=== PATIENT | female | born 1965 | race Hispanic/Latino ===

== ENCOUNTER 2022-08-02 18:54 | Inpatient (IN) | payer MEDICAID, SELFPAY ==
--- NOTE | ~2022-08-02 | XR_ITS ---
EXAMINATION: XR chest 2V Exam Date/Time: 08/02/2022 20:05 HEALTH PROMOTION COORDINATOR HISTORY: chest pain X 1 WK, LT SIDED LOWER CHEST PAIN, HX [place] Comparison: None available. RESULT: Lines, tubes, and devices: None. Lungs and pleura: Mild bilateral mid and lower lung reticular nodular opacities, most evident in the right middle lobe. Streaky bibasilar opacities may reflect scar/atelectasis Cardiomediastinal silhouette: Stable. Other: No acute osseous or upper abdominal finding. IMPRESSION: Pulmonary opacities may represent bronchiolitis, as can be seen with atypical infection, asthma, aspi ration, and small airways disease. Reviewed, dictated and finalized at location K. TH PROMOTION COORDINATOR IMPRESSION: Pulmonary opacities may represent bronchiolitis, as can be seen with atypical i nfection, asthma, aspiration, and small airways disease.
--- NOTE | ~2022-08-02 | US_ITS ---
Limited Abdominal Sonogram: Real-time sonographic imaging of the right upper quadrant was performed. Clinical History: Right upper quadrant pain Findings: The liver appears normal with no evidence of mass lesion or bile duct dilatation. Main por chitra vein demonstrates normal direction of flow. The gallbladder is well distended, without mobile gal lstone. 3 mm gallbladder wall polyp noted. The common bile duct measures 6 mm. The visualized pancre as, aorta, and IVC are unremarkable. Impression: 3 mm gallbladder wall polyp, otherwise unremarkable exam. Reviewed, dictated and finalized at location M. AL RETARDATION AIDE Impression: 3 mm gallbladder wall polyp, otherwise unremarkable exam.
--- NOTE | ~2022-08-02 | CT_ITS ---
CT Abdomen and Pelvis with contrast. History: Abdominal pain. Spiral CT of the abdomen and pelvis was performed after the administration of intravenous contrast. 1 00 cc of Omnipaque 350 was administered intravenously without complication. Dose reduction technique was used on this scan by utilizing automated exposure control and iterative reconstruction technique. The dose-length product (DLP) was 217.50 mGy-cm. Findings: Scans through the lung bases demonstrate mild bibasilar scarring or atelectasis. Probable m inimal bronchiectasis in the right middle lobe.. The liver, spleen, pancreas, adrenals and left kidney are within normal limits. Small calcified galls tones noted. There is patchy decreased enhancement throughout the right renal parenchyma, consistent with pyelonephritis. No hydronephrosis. No evidence of aortic aneurysm. No lymphadenopathy is seen. There is no evidence of bowel obstruction. There is no evidence to suggest acute appendicitis or dive rticulitis. Images through the pelvis were performed. Urinary bladder unremarkable. No adnexal mass seen. No asci ayesha is seen. Impression: Right pyelonephritis. No abscess or hydronephrosis. Reviewed, dictated and finalized at location . HIATRIC TECHNICIAN Impression: Right pyelonephritis. No abscess or hydronephrosis.
[2022-08-02 18:56] VITALS: BP 121/70; PULSE 100; RESP 20; TEMP 37.2; O2SAT 99
--- NOTE | 2022-08-02 19:03 | ECG_ITS ---
Measurements Intervals [place] Rate: 96 P: [place]: 0 QRS: 66 QRSD: 81 T: 69 QT: 305 QTc: 386 Interpretive Statements SINUS RHYTHM RSR' IN V1 OR V2, PROBABLY NORMAL VARIANT NORMAL ECG NO PREVIOUS ECG AVAILABLE FOR COMPARISON Electronically Signed On 08-02-2022 20:17:29 STRUCTURAL FITTER by Maikol Foote D.O.
[2022-08-02 19:19] LABS: Hematocrit 34.1 % (37.0-47.0); Hemoglobin 11.4 g/dL (12.0-15.0); Mean Corpuscular HGB Conc 33.4 g/dl (32-36); Mean Corpuscular Hemoglobin 31.8 pg (26-34); Mean Corpuscular Volume 95.3 fl (80-100); Mean Platelet Volume 10.4 fl (7.4-10.4); Platelet Count Result 384 k/mm3 (150-375); Red Blood Count 3.58 M/mm3 (4.2-5.4); Red Cell Distribution Width 13.1 % (11.5-14.5); White Blood Count 22.9 K/mm3 (4.5-10.0)
[2022-08-02 19:26] LABS: Alanine Aminotransferase 110 U/L (6-35); Alkaline Phosphatase 228 U/L (38-126); Anion Gap 7 mmol/L (8-16); Aspartate Amino Transferase 116 U/L (14-36); Bilirubin,Total 0.8 mg/dL (0.2-1.3); Blood Urea Nitrogen 11 mg/dL (7-17); Calcium 8.4 mg/dL (8.4-10.2); Carbon Dioxide 28 mmol/L (22-30); Chloride 104 mmol/L (98-107); Estimated Glomerular Filt Rate > 60; Glucose 143 mg/dL (65-110); Lipase 19 U/L (23-300); Potassium 3.6 mmol/L (3.4-5.0); Sodium 139 mmol/L (137-145)
[2022-08-02 19:28] LABS: INR 1.2; Partial Thromboplastin Time 36.4 SECONDS (22.3-36.8); Prothrombin Time 14.4 Seconds (11.1-14.7)
[2022-08-02 19:38] LABS: Troponin I < 0.012 ng/mL (0.000-0.034)
[2022-08-02 19:57] LABS: Band Neutrophils Percent 8 % (0-6); Eosinophils Absolute Manual 0.45 K/mm3 (0.02-0.5); Eosinophils Percent Manual 2 % (0-4); Lymphocytes Absolute Manual 1.83 K/mm3 (1.1-4.5); Monocytes Absolute Manual 0.45 K/mm3 (0.1-0.90); Monocytes Percent Manual 2 % (3-9); Neutrophils Absolute Manual 20.15 K/mm3 (1.7-7.2); Neutrophils Percent Manual 80 % (46-73); Schistocytes None Seen (NORMAL); Total Cells Counted 100
[2022-08-02 23:35] VITALS: BP 108/81; PULSE 119; RESP 22; O2SAT 100
[2022-08-02 23:41] VITALS: PULSE 112; RESP 34; O2SAT 100
[2022-08-02 23:42] VITALS: O2SAT 100
[2022-08-02 23:45] VITALS: PULSE 122; RESP 19; O2SAT 100
[2022-08-03] VITALS (27 sets, daily range): BP systolic 95–124; BP diastolic 54–80; PULSE 96–123; RESP 16–32; TEMP 36.4–37.7; O2SAT 90–99; BMI 24.7
[2022-08-03] MEDS: LACTATED RINGERS 1,000 ML 999 ML IV CONT ×2 (00:11→03:33)
[2022-08-03 00:37] LABS: Add Urine Microscopic? YES; Appearance Urine Slightly Cloudy (Clear); Bilirubin Urine Negative (Negative); Blood Urine 2+ (Negative); Color Urine Yellow (Yellow); Glucose Urine UA Negative (Negative); Ketones Urine Negative (Negative); Leukocyte Esterase Ur 2+ LEU/UL (Negative); Nitrate Urine Positive (Negative); Protein Urine Trace mg/dL (Negative); Specific Grav Ur <= 1.005 (1.001-1.035); Urobilinogen Urine 0.2 mg/dL (<2.0)
[2022-08-03 00:44] LABS: Bacteria Urine Trace /hpf; Mucus Urine Rare /lpf; Squamous Epithelial Cell Urine Occasional /hpf (Few); WBC Urine 31-50 /hpf
--- NOTE | 2022-08-03 03:10 | ED.ABDPAIN ---
HPI - Abdominal Pain General Chief Complaint: Chest Pain Stated Complaint: fever, back pain Time Seen by Provider: 08/02/22 23:36 History of Present Illness HPI narrative: 57-year-old female who states that for the last month or so she has been having a lot of pain in her epigastric abdomen/right upper quadrant, particularly with eating, but that over the past week she has also been having fevers and chills, and dysuria, and now flank pain. Also endorsing a headache. No abdominal surgery history. Related Data Allergies Allergy/AdvReac Type Severity Reaction Status Date / Time No Known Allergies Allergy Verified 08/03/22 01:38 Review of Systems Review of Systems: CONST: Fevers HEENT: No sore throat C/V: Right-sided chest pain RESP: No cough GI: Reports right upper quadrant/epigastric abdominal pain, nausea : Dysuria. M/S: No joint pain. SKIN: No rash. NEURO: Headache without focal numbness or weakness PSYCH: [No depression] Exam Narrative: EXAMINATION OF ORGAN SYSTEMS/BODY AREAS: Constitutional: Vital signs per nursing GENERAL: Appears uncomfortable in bed HEAD: Normal with no signs of head trauma. EYES: EOMI, conjunctiva normal ENT: Hearing grossly intact LUNGS: Nonlabored breathing. HEART: Tachycardic ABD: [Soft], right upper quadrant tenderness BACK: R CVA tenderness EXT: Normal range of motion SKIN: [No rashes or lesions.] NEURO: [Alert and oriented x 3. No gross focal sensory or strength deficits.] PSYCH: Normal affect Course Vital Signs Vital signs: Vital Signs Temperature 98.9 F 08/02/22 18:56 Pulse Rate 100 08/02/22 18:56 Respiratory Rate 20 08/02/22 18:56 Blood Pressure 121/70 08/02/22 18:56 Pulse Oximetry 99 08/02/22 18:56 Temperature 98.9 F 08/02/22 18:56 Pulse Rate 110 H 08/03/22 03:15 Respiratory Rate 28 H 08/03/22 03:15 Blood Pressure 110/69 08/03/22 03:01 Pulse Oximetry 97 08/03/22 03:15 Oxygen Delivery Room Air 08/02/22 23:42 MDM - Abdominal Pain MDM Narrative Medical decision making narrative: Electronic medical record was reviewed. Patient presented to the ED with complaint of right flank pain and abdominal pain. Vitals notable for tachycardia. Physical exam revealed soft abdomen with tenderness in the right upper quadrant and CVA tenderness. Based on the patient's history and physical exam, my differential includes but is not limited to cholecystitis, pyelonephritis, appendicitis, pancreatitis; ACS and pneumonia also considered. [IV access was established by nursing staff. Patient was given IV fluids]. CBC, BMP, lipase, LFTs, bilirubin and alk phos were obtained. Labs were pertinent for leukocytosis 23, elevated LFTs and alk phos. BLood cultures obtained, IV fluids continued, zosyn started for sepsis. UA consistent with UTI. [Decision was made to obtain a CT-abdomen to evaluate for acute abdominal process including retained stone or cholecystitis. CT does show distended gallbladder, perinephric stranding on the right.] I did discuss this case with the surgeon given her LFTs, he would like to see the patient in the morning and evaluate for possible cholecystectomy. Case discussed with the hospitalist for admission. Findings and plan discussed with the patient and her daughter at bedside are agreeable to this. Lab Data 08/02/22 19:09 08/02/22 19:09 Labs: Lab Results 08/02/22 08/02/22 08/02/22 Range/Units 19:09 19:09 19:09 WBC 22.9 H (4.5-10.0) K/mm3 RBC 3.58 L (4.2-5.4) M/mm3 Hgb 11.4 L (12.0-15.0) g/dL Hct 34.1 L (37.0-47.0) % MCV 95.3 (80-100) fl MCH 31.8 (26-34) pg MCHC 33.4 (32-36) g/dl RDW 13.1 (11.5-14.5) % Plt Count 384 H (150-375) k/mm3 MPV 10.4 (7.4-10.4) fl Immature Gran % (Auto) Not Reportable Neut % (Auto) Not Reportable Lymph % (Auto) Not Reportable [place] % (Auto) Not Reportable Eos % (Auto) Not Reportable Baso % (Aut
[2022-08-03] MEDS: METOCLOPRAMIDE HCL INJ 10 MG/2 ML VIAL IV PUSH (03:33)
[2022-08-03 04:13] LABS: Influenza A QL RT-PCR Negative (Negative); Influenza B QL RT-PCR Negative (Negative); RSV RNA, RT-PCR Negative (Negative); SARS-CoV-2 RNA PCR Negative
[2022-08-03] MEDS: LACTATED RINGERS 1,000 ML 125 ML IV CONT (04:39)
--- NOTE | 2022-08-03 07:20 | PC.NURSE ---
pt to ultrasound via stretcher.
[2022-08-03 07:25] LABS: Basophils Absolute Auto 0.1 K/mm3 (0.0-0.1); Basophils Percent Auto 0.3 % (0.2-1.2); Eosinophils Absolute Auto 0.5 K/mm3 (0-0.3); Eosinophils Percent Auto 2.4 % (0-4.4); Hematocrit 28.5 % (37.0-47.0); Hemoglobin 9.6 g/dL (12.0-15.0); Immature Granulocyte Absolute 0.18 K/mm3 (0.00-0.031); Immature Granulocyte Percent A 0.9 % (0-0.5); Lymphocytes Absolute Auto 1.78 K/mm3 (0.9-3.2); Lymphocytes Percent Auto 9.1 % (18.3-44.2); Mean Corpuscular HGB Conc 33.7 g/dl (32-36); Mean Corpuscular Hemoglobin 31.2 pg (26-34); Mean Corpuscular Volume 92.5 fl (80-100); Mean Platelet Volume 10.3 fl (7.4-10.4); Monocytes Absolute Auto 1.3 K/mm3 (0.1-0.6); Monocytes Percent Auto 6.8 % (2.6-8.5); Neutrophils Absolute Auto 15.7 K/mm3 (1.3-6.7); Neutrophils Percent Auto 80.5 % (45.5-73.1); Platelet Count Result 360 k/mm3 (150-375); Red Blood Count 3.08 M/mm3 (4.2-5.4); Red Cell Distribution Width 13.4 % (11.5-14.5); White Blood Count 19.5 K/mm3 (4.5-10.0)
[2022-08-03 07:33] LABS: Alanine Aminotransferase 93 U/L (6-35); Albumin Level 3.1 g/dL (3.5-5.1); Alkaline Phosphatase 206 U/L (38-126); Anion Gap 4 mmol/L (8-16); Aspartate Amino Transferase 74 U/L (14-36); Bilirubin,Total 0.7 mg/dL (0.2-1.3); Blood Urea Nitrogen 7 mg/dL (7-17); Calcium 7.7 mg/dL (8.4-10.2); Carbon Dioxide 28 mmol/L (22-30); Chloride 108 mmol/L (98-107); Estimated Glomerular Filt Rate > 60; Glucose 112 mg/dL (65-110); Lipase 11 U/L (23-300); Potassium 3.4 mmol/L (3.4-5.0); Sodium 140 mmol/L (137-145)
--- NOTE | 2022-08-03 10:25 | PM.IMHP ---
H&P: HPI History of Present Illness Date/Time: 08/03/22 10:25 Chief Complaint: abdominal pain Narrative: Pt is a 57 yo female w/ no prior medical history who presented to the Emergency room for abdominal pain and R flank pain. [employer] transit operations supervisor was used for interview as the patient is Slovenian speaking. History is still fairly limited due to communication barrier despite using transit operations supervisor. Per ER note, patient presented w/ epigastric and RUQ pain intermittent x 1 month, worse x 1 week. Pt tells me she has had intermittent abdominal pain since having her gallbladder removed in 2006. She came to the ER because she developed fever, chills, PACK, and R flank pain x 2 days. She denies urinary symptoms. Upon review of imaging, patient does in fact still have a gallbladder, despite her being certain it was removed in 2006. Pt is being admitted for sepsis due to acute pyelonephritis as noted on CT. Pertinent labs include leukocytosis of 22.9 and elevated LFTs. Pt admitted as inpatient w/ greater than 2 midnights expected for further evaluation and treatment. Review of Systems Review of Systems: General: + fever, +chills Eyes: Denies vision changes ENT: Denies nasal congestion or sore throat Respiratory: Denies cough or shortness of breath Cardiovascular: Denies chest pain or lower extremity edema Gastrointestinal: + abdominal pain, + nausea Genitourinary: Denies dysuria Musculoskeletal: + R flank pain Neurological: + headache, no motor weakness Integumentary: Denies rash PMF Social History Social History (Updated 08/03/22 @ 10:39 by Isadora Rosales PA-C) Smoking status: Never smoker Second hand tobacco smoke exposure: No Alcohol intake: never Substance use type: does not use Lack of Transportation: No Lack of Food: Sometimes True Current Housing: I Have Housing Concerned About Future Housing: No Difficulty Paying Gas/Electric Bills: YES Difficulty Paying for Meds: YES Currently Unemployed: YES Education: Grade School Difficulty w/ Childcare or Family Care: No Gender identity (if verbalized by the patient): Female Spiritual care concerns: No (uatsdin) Meds Home Medications and Allergies Allergies Allergy/AdvReac Type Severity Reaction Status Date / Time No Known Allergies Allergy Verified 08/03/22 08:40 Vital Signs Vital Signs - 24 hr 08/02/22 18:56 08/02/22 23:35 08/02/22 23:42 Temperature 98.9 F Pulse Rate 100 119 H Respiratory Rate 20 22 H Blood Pressure 121/70 108/81 Pulse Oximetry 99 100 100 Oxygen Delivery Room Air 08/03/22 01:44 08/02/22 23:41 08/02/22 23:45 Temperature Pulse Rate 110 H 112 H 122 H Respiratory Rate 26 H 34 H 19 Blood Pressure 95/54 L Pulse Oximetry 96 100 100 Oxygen Delivery 08/03/22 00:11 08/03/22 00:15 08/03/22 00:30 Temperature Pulse Rate 111 H 112 H 113 H Respiratory Rate 30 H 31 H 27 H Blood Pressure Pulse Oximetry 97 99 Oxygen Delivery 08/03/22 00:45 08/03/22 01:00 08/03/22 01:58 Temperature Pulse Rate 114 H 111 H 113 H Respiratory Rate 31 H 32 H 28 H Blood Pressure Pulse Oximetry 98 94 96 Oxygen Delivery 08/03/22 02:00 08/03/22 02:25 08/03/22 02:30 Temperature Pulse Rate 109 H 115 H 112 H Respiratory Rate 27 H 25 H 28 H Blood Pressure Pulse Oximetry 96 97 95 Oxygen Delivery 08/03/22 02:45 08/03/22 03:00 08/03/22 03:01 Temperature Pulse Rate 110 H 111 H 111 H Respiratory Rate 25 H 28 H 26 H Blood Pressure 110/69 Pulse Oximetry 94 96 95 Oxygen Delivery 08/03/22 03:15 08/03/22 03:31 08/03/22 03:45 Temperature Pulse Rate 110 H 114 H 123 H Respiratory Rate 28 H 27 H 25 H Blood Pressure Pulse Oximetry 97 97 Oxygen Delivery 08/03/22 04:00 08/03/22 04:01 08/03/22 04:55 Temperature Pulse Rate 118 H 119 H 113 H Respiratory Rate 28 H 29 H 25 H Blood Pressure 121/78 Pulse Oximetry 96 96 95 Oxygen Delivery
--- NOTE | 2022-08-03 12:22 | PM.CNGS ---
Assessment and Plan Assessment and plan (1) Abnormal CT of the abdomen: Code(s): R93.5 - Abnormal findings on diagnostic imaging of other abdominal regions, including retroperitoneum Status: Acute Assessment and Plan: I have reviewed the CT and ultrasound and discussed the findings with the patient. Her CT showed possible small cholelithiasis in an otherwise normal appearing gallbladder as well as signs of right pyelonephritis. Her ultrasound does not confirm cholelithiasis but does state there is a 3 mm gallbladder wall polyp. She has no other concerning findings for cholecystitis. Her presentation does not appear to be consistent with acute cholecystitis. This is more likely related to her pyelonephritis. Her liver enzymes are elevated but that could be related to the infection and sepsis as well. Will allow patient to have clear liquid diet. Continue medical treatment per hospitalist. I would not recommend surgery at this time given the ongoing kidney infection. Patient could always follow up as an outpatient if she notices recurrent pains after eating fried or fatty foods. (2) Elevated liver enzymes: Code(s): R74.8 - Abnormal levels of other serum enzymes Status: Acute (3) Pyelonephritis: Code(s): N12 - Tubulo-interstitial nephritis, not specified as acute or chronic Status: Acute (4) Sepsis: Code(s): A41.9 - Sepsis, unspecified organism Status: Acute History of Present Illness Consult details Consult date: 08/03/22 Reason for consult: other (Possible cholecystitis) Requesting physician: Ritu Aguirre MD Narrative: This is a 57-year-old woman who I am asked to see for possible cholecystitis. She presented to the emergency department last night with epigastric and right upper quadrant pain, right flank pain, and fevers. Her fevers have been over the past several days. She is primarily Sinhala speaking therefore extension course coordinator was used to obtain history. She does not identify any particular foods that are causing any pain. She denies any change in her bowel habits. Even with using the extension course coordinator system, her history is somewhat difficult to obtain. She is mostly complaining of feeling hot all over. She is also thirsty because she has been kept NPO. She has had surgery before and she points to 3 areas on her lower abdomen for her prior surgery, but does not elaborate much on what was done. Review of Systems Review of Systems: All systems reviewed & are unremarkable except as noted in HPI and below Constitutional: Constitutional: Reports as per HPI, Reports chills and Reports fever(s) Eyes: Eyes: Denies change in vision ENT: Denies hearing loss, Denies neck pain and Denies sore throat Cardiovascular: Cardiovascular: Denies chest pain and Denies dyspnea Respiratory: Respiratory: Denies cough, Denies dyspnea and Denies wheezing Gastrointestinal: Gastrointestinal: Reports as per HPI Genitourinary: Genitourinary: Denies hematuria and Denies dysuria Musculoskeletal: Musculoskeletal: Denies arthralgias, Denies joint swelling and Denies neck pain Allergic/Immunologic: Allergic/Immunologic: Denies wheezing PMFSH Past Medical History Medical History No pertinent past medical history Surgical History Surgical History History of laparoscopy Family History Family History Other Family history unknown Social History Social History Smoking status: Never smoker Second hand tobacco smoke exposure: No Alcohol intake: never Substance use type: does not use Lack of Transportation: No Lack of Food: Sometimes True Current Housing: I Have Housing Concerned About Future Housing: No Difficulty Paying Gas/Electric Bills: YES Difficul
--- NOTE | 2022-08-03 16:30 | PC.NURSE ---
pts family who is translating states pt is in pain. erin st notified. pain and nausea med orders received verbally. morphine given per order.
[2022-08-03] MEDS: MORPHINE SULFATE (*CRX) 2 MG/ML INJ IV PUSH (16:47)
--- NOTE | 2022-08-03 17:11 | ADMGEN ---
This patient, Margy Gallardo, was admitted to [facility] Surg Room 306-02. Patient/family oriented to hospital policies and general routines including ID bracelet, bed and alarms, visiting hours, pain management, procedures, bathroom and other care routines, personal items, smoking policy, room service/diet, and visiting hours. Information on how to activate the Rapid Response Team has been discussed. Patient/Family are encouraged to report perceived risks to care and to ask questions if they do not understand what they are told or what they should do.
[2022-08-03] MEDS: LACTATED RINGERS 1,000 ML 75 ML IV CONT (18:31)
[2022-08-04 06:26] LABS: Basophils Absolute Auto 0.1 K/mm3 (0.0-0.1); Basophils Percent Auto 0.4 % (0.2-1.2); Eosinophils Absolute Auto 0.3 K/mm3 (0-0.3); Eosinophils Percent Auto 1.6 % (0-4.4); Hemoglobin 9.6 g/dL (12.0-15.0); Immature Granulocyte Absolute 0.12 K/mm3 (0.00-0.031); Immature Granulocyte Percent A 0.7 % (0-0.5); Lymphocytes Absolute Auto 2.28 K/mm3 (0.9-3.2); Lymphocytes Percent Auto 13.7 % (18.3-44.2); Mean Corpuscular HGB Conc 33.1 g/dl (32-36); Mean Corpuscular Hemoglobin 31.7 pg (26-34); Mean Corpuscular Volume 95.7 fl (80-100); Mean Platelet Volume 10.3 fl (7.4-10.4); Monocytes Percent Auto 6.1 % (2.6-8.5); Neutrophils Absolute Auto 12.9 K/mm3 (1.3-6.7); Neutrophils Percent Auto 77.5 % (45.5-73.1); Platelet Count Result 362 k/mm3 (150-375); Red Blood Count 3.03 M/mm3 (4.2-5.4); Red Cell Distribution Width 13.7 % (11.5-14.5); White Blood Count 16.7 K/mm3 (4.5-10.0)
[2022-08-04 06:45] VITALS: BP 117/62; PULSE 85; RESP 16; TEMP 36.8; O2SAT 100
[2022-08-04] MEDS: LACTATED RINGERS 1,000 ML 75 ML IV CONT ×2 (06:49→21:55)
[2022-08-04 06:54] LABS: Alanine Aminotransferase 62 U/L (6-35); Albumin Level 2.9 g/dL (3.5-5.1); Alkaline Phosphatase 200 U/L (38-126); Anion Gap 9 mmol/L (8-16); Aspartate Amino Transferase 49 U/L (14-36); Bilirubin,Total 0.8 mg/dL (0.2-1.3); Blood Urea Nitrogen 7 mg/dL (7-17); Calcium 7.6 mg/dL (8.4-10.2); Carbon Dioxide 25 mmol/L (22-30); Chloride 100 mmol/L (98-107); Estimated CRCL calculation 56 ml/min; Estimated Glomerular Filt Rate > 60; Glucose 103 mg/dL (65-110); Potassium 3.3 mmol/L (3.4-5.0); Sodium 134 mmol/L (137-145)
--- NOTE | 2022-08-04 08:32 | PM.IMPN ---
Progress Note: A&P Assessment and Plan (1) Sepsis: Code(s): A41.9 - Sepsis, unspecified organism Status: Acute Assessment and Plan: -secondary to acute pyelonephritis as noted on CT -pt admitted w/ WBC of 22.9, HR currently 115 bpm, respirations 25 meeting SIRS criteria -receiving IVF and Zosyn due to concern of possible cholecystitis which was ruled out as noted below -continue Zosyn for now, urine and blood cultures pending, will follow culture and adjust abx therapy as indicated -continue IVF, currently 75 ml/hr urine culture is pending.blood culture no growth to date (2) Pyelonephritis: Code(s): N12 - Tubulo-interstitial nephritis, not specified as acute or chronic Status: Acute Assessment and Plan: -as above (3) Cholelithiasis: Code(s): K80.20 - Calculus of gallbladder without cholecystitis without obstruction Status: Acute Assessment and Plan: -ER note states CT was read initially as significant for distended gallbladder, perinephric stranding on the right. Due to elevated LFTs and sepsis, general surgery was consulted for possible acute cholecystitis. Abdominal US was completed this morning which shows a gallbladder polyp, but was otherwise unremarkable. This is all quite curious because patient was certain her gallbladder was removed in 2006. abdominal us unremakble except or 3 mm gb wall polyp gen srg consulted. appreciate their recs. Subjective Date/time seen: 08/04/22 08:32 Interval history: seen with linoleum printer. feels a bit better. she reports flank pain is better. no nausea, vomiting. Review of Systems Review of Systems: All systems reviewed & are unremarkable except as noted in HPI and below Exam Narrative: General: No acute distress, mildly ill appearing, lethargic Eyes: PERRL HEENT: NCAT, Respiratory: No respiratory distress, Lungs CTA bilaterally, no wheezing Cardiovascular: tachycardic, regular rhythm, no murmur Abdominal: Soft, moderate ttp right cva Musculoskeletal: Moves all 4 extremities, no edema Neurological: A/Ox3, speech clear, no facial asymmetry Skin: Warm, dry, no rashes Psychiatric: Normal affect, normal mood Objective Data Vital Signs Vital Signs: Vital Signs - 24 hr 08/03/22 14:20 08/03/22 16:55 08/03/22 17:10 Temperature 97.6 F Pulse Rate 101 H 96 96 Respiratory Rate 16 16 16 Blood Pressure 113/68 111/60 111/60 Pulse Oximetry 98 98 Oxygen Delivery 08/03/22 17:24 08/03/22 21:38 08/03/22 20:45 Temperature 99.9 F H 97.7 F Pulse Rate 99 108 H Respiratory Rate 16 16 Blood Pressure 124/69 111/70 Pulse Oximetry 96 97 Oxygen Delivery Room Air 08/04/22 06:45 Temperature 98.3 F Pulse Rate 85 Respiratory Rate 16 Blood Pressure 117/62 Pulse Oximetry 100 Oxygen Delivery Intake/Output Intake/Output: Intake & Output 08/01/22 08/02/22 08/03/22 08/04/22 23:59 23:59 23:59 23:59 Intake Total 3350 1050 Balance 3350 1050 Meds/Results Medications: Active Medications Generic Name Dose Route Start Last Admin Trade Name Freq PRN Reason Stop Dose Admin Acetaminophen 650 mg 08/03/22 18:48 Acetaminophen 325 Mg Tablet PO Q4H PRN fever Hydrocodone Bitart/Acetaminophen 1 tab 08/03/22 16:32 Hydrocodone/Acetaminophen (*Crx) 5-325 Mg Tablet PO Q4H PRN Pain Rated 4-6 Lactated Ringer's 1,000 mls @ 75 mls/hr 08/03/22 03:30 08/04/22 06:49 Lr - Lactated Ringers Iv IV CONT 75 mls/hr .[id number] BIJAN Administration Piperacillin/Tazobactam/Dextrose 3.375 gm in 50 mls @ 100 mls/hr 08/03/22 07:30 08/04/22 07:13 Zosyn 3.375 Gm/D5w 50ml Pm IVPB Infused Q6HR BIJAN Infusion Morphine Sulfate 2 mg 08/03/22 16:31 08/03/22 16:47 Morphine Sulfate (*Crx) 2 Mg/Ml Inj IV PUSH 2 mg Q4H PRN Administration Pain Rated 7-10 Ondansetron HCl 4 mg 08/03/22 16:30 Ondansetron Inj 4 Mg/2 Ml Vial IV PUSH Q4H PRN N
[2022-08-04] MEDS: POTASSIUM CHLORIDE 20 MEQ TABLET 40 MEQ PO (10:50)
--- NOTE | 2022-08-04 12:40 | PM.PNGS ---
Progress Note: A&P Assessment and Plan (1) Abnormal CT of the abdomen: Code(s): R93.5 - Abnormal findings on diagnostic imaging of other abdominal regions, including retroperitoneum Status: Acute Assessment and Plan: Tolerating clears. Advance to low fat diet. No surgical indications at this time. (2) Pyelonephritis: Code(s): N12 - Tubulo-interstitial nephritis, not specified as acute or chronic Status: Acute (3) Sepsis: Code(s): A41.9 - Sepsis, unspecified organism Status: Acute Subjective Subjective Date/Time Seen: 08/04/22 12:40 Interval history: Mostly complaining of dysuria and some mild improving right flank pain. Tolerating clear liquids. Exam GI: GI Palp: Yes Soft to palpation, No Tenderness to palpation present (GI) and No Guarding due to palpation present (GI) Objective Data Vital Signs Vital Signs: Vital Signs - 24 hr 08/03/22 14:20 08/03/22 16:55 08/03/22 17:10 Temperature 36.4 C Pulse Rate 101 H 96 96 Respiratory Rate 16 16 16 Blood Pressure 113/68 111/60 111/60 Pulse Oximetry 98 98 Oxygen Delivery 08/03/22 17:24 08/03/22 21:38 08/03/22 20:45 Temperature 37.7 C H 36.5 C Pulse Rate 99 108 H Respiratory Rate 16 16 Blood Pressure 124/69 111/70 Pulse Oximetry 96 97 Oxygen Delivery Room Air 08/04/22 06:45 Temperature 36.8 C Pulse Rate 85 Respiratory Rate 16 Blood Pressure 117/62 Pulse Oximetry 100 Oxygen Delivery Intake/Output Intake/Output: Intake & Output 08/01/22 08/02/22 08/03/22 08/04/22 23:59 23:59 23:59 23:59 Intake Total 3350 1410 Balance 3350 1410 Meds/Results Medications: Active Medications Generic Name Dose Route Start Last Admin Trade Name Freq PRN Reason Stop Dose Admin Acetaminophen 650 mg 08/03/22 18:48 Acetaminophen 325 Mg Tablet PO Q4H PRN fever Hydrocodone Bitart/Acetaminophen 1 tab 08/03/22 16:32 Hydrocodone/Acetaminophen (*Crx) 5-325 Mg Tablet PO Q4H PRN Pain Rated 4-6 Lactated Ringer's 1,000 mls @ 75 mls/hr 08/03/22 03:30 08/04/22 06:49 Lr - Lactated Ringers Iv IV CONT 75 mls/hr .[id number] BIJAN Administration Piperacillin/Tazobactam/Dextrose 3.375 gm in 50 mls @ 100 mls/hr 08/03/22 07:30 08/04/22 07:13 Zosyn 3.375 Gm/D5w 50ml Pm IVPB Infused Q6HR BIJAN Infusion Morphine Sulfate 2 mg 08/03/22 16:31 08/03/22 16:47 Morphine Sulfate (*Crx) 2 Mg/Ml Inj IV PUSH 2 mg Q4H PRN Administration Pain Rated 7-10 Ondansetron HCl 4 mg 08/03/22 16:30 Ondansetron Inj 4 Mg/2 Ml Vial IV PUSH Q4H PRN Nausea And Vomiting Radiology Results: ITS Impressions Chest X-Ray 08/02/22 20:33 IMPRESSION: Pulmonary opacities may represent bronchiolitis, as can be seen with atypical infection, asthma, aspiration, and small airways disease. Abdomen/Pelvis CT 08/03/22 06:34 Impression: Right pyelonephritis. No abscess or hydronephrosis. Abdomen Ultrasound 08/03/22 08:02 Impression: 3 mm gallbladder wall polyp, otherwise unremarkable exam. Labs Labs: Laboratory Results - last 24 hr 08/04/22 08/04/22 05:53 05:53 WBC 16.7 H RBC 3.03 L Hgb 9.6 L Hct 29.0 L MCV 95.7 MCH 31.7 MCHC 33.1 RDW 13.7 Plt Count 362 MPV 10.3 Immature Gran % (Auto) 0.7 H Neut % (Auto) 77.5 H Lymph % (Auto) 13.7 L [place] % (Auto) 6.1 Eos % (Auto) 1.6 Baso % (Auto) 0.4 Lymph # (Auto) 2.28 [place] # (Auto) 1.0 H Eos # (Auto) 0.3 Baso # (Auto) 0.1 Abs Immat Gran (auto) 0.12 H Absolute Neuts (auto) 12.9 H Absolute Nucleated RBC 0.0 Nucleated RBC % 0.0 Sodium 134 L Potassium 3.3 L Chloride 100 Carbon Dioxide 25 Anion Gap 9 BUN 7 Creatinine 0.70 Estim Creat Clear Calc 56 Estimated GFR > 60 Glucose 103 Calcium 7.6 L Total Bilirubin 0.8 AST 49 H ALT 62 H Alkaline Phosphatase 200 H Total Protein 6.0 L [place]
[2022-08-04 14:00] VITALS: BP 114/66; PULSE 86; RESP 28; TEMP 36.4; O2SAT 97; BMI 24.7
[2022-08-04 21:22] VITALS: BP 121/63; PULSE 94; RESP 14; TEMP 37.4; O2SAT 95
[2022-08-05 05:36] VITALS: BP 118/70; PULSE 88; RESP 14; TEMP 36.6; O2SAT 99
[2022-08-05 07:08] LABS: Basophils Absolute Auto 0.1 K/mm3 (0.0-0.1); Basophils Percent Auto 0.5 % (0.2-1.2); Eosinophils Absolute Auto 0.5 K/mm3 (0-0.3); Eosinophils Percent Auto 4.4 % (0-4.4); Hematocrit 30.7 % (37.0-47.0); Hemoglobin 10.2 g/dL (12.0-15.0); Immature Granulocyte Absolute 0.13 K/mm3 (0.00-0.031); Immature Granulocyte Percent A 1.2 % (0-0.5); Lymphocytes Absolute Auto 1.88 K/mm3 (0.9-3.2); Lymphocytes Percent Auto 17.3 % (18.3-44.2); Mean Corpuscular HGB Conc 33.2 g/dl (32-36); Mean Corpuscular Hemoglobin 30.8 pg (26-34); Mean Corpuscular Volume 92.7 fl (80-100); Mean Platelet Volume 10.4 fl (7.4-10.4); Monocytes Absolute Auto 0.9 K/mm3 (0.1-0.6); Monocytes Percent Auto 7.8 % (2.6-8.5); Neutrophils Absolute Auto 7.5 K/mm3 (1.3-6.7); Neutrophils Percent Auto 68.8 % (45.5-73.1); Platelet Count Result 420 k/mm3 (150-375); Red Blood Count 3.31 M/mm3 (4.2-5.4); Red Cell Distribution Width 13.6 % (11.5-14.5); White Blood Count 10.9 K/mm3 (4.5-10.0)
[2022-08-05 07:23] LABS: Alanine Aminotransferase 49 U/L (6-35); Albumin Level 3.4 g/dL (3.5-5.1); Alkaline Phosphatase 181 U/L (38-126); Anion Gap 5 mmol/L (8-16); Aspartate Amino Transferase 27 U/L (14-36); Bilirubin,Total 0.8 mg/dL (0.2-1.3); Blood Urea Nitrogen 6 mg/dL (7-17); Calcium 8.1 mg/dL (8.4-10.2); Carbon Dioxide 29 mmol/L (22-30); Chloride 100 mmol/L (98-107); Estimated CRCL calculation 49 ml/min; Estimated Glomerular Filt Rate > 60; Glucose 121 mg/dL (65-110); Magnesium 2.2 mg/dL (1.6-2.3); Potassium 3.7 mmol/L (3.4-5.0); Sodium 134 mmol/L (137-145)
[2022-08-05 10:42] LABS: Hepatitis B Surface Antigen Negative (Negative)
[2022-08-05 10:47] LABS: HAV RESULT Negative (Negative); Hepatitis B Core IgM Result Negative (Negative)
[2022-08-05 10:58] LABS: Hepatitis C Virus Antibody Negative (Negative)
[2022-08-05] MEDS: LACTATED RINGERS 1,000 ML 75 ML IV CONT (11:50)
[2022-08-05] MEDS: HYDROcodone/acetaminophen (*CRX) 5-325 MG TABLET 1 TAB PO (11:53)
[2022-08-05 14:00] VITALS: BP 115/72; PULSE 73; RESP 16; TEMP 36.1; O2SAT 100
--- NOTE | 2022-08-05 18:05 | PM.DS ---
DS: Admitting Diagnosis Discharge Date 08/05/22 Admitting Diagnosis Abdominal pain DS: Discharge Diagnosis Discharge Diagnosis (1) Sepsis: Code(s): A41.9 - Sepsis, unspecified organism Status: Acute (2) Pyelonephritis: Code(s): N12 - Tubulo-interstitial nephritis, not specified as acute or chronic Status: Acute (3) Cholelithiasis: Code(s): K80.20 - Calculus of gallbladder without cholecystitis without obstruction Status: Acute DS: Summary Hospital Course Reason for hospitalization: 57yo female w/ no prior medical history who presented to the Emergency room for abdominal pain and R flank pain. Please see H&P for details Hospital Course: WBC was 19K. LFTs mildly elevated. Influenza, COVID and RSV negative. Hepatitis panel was negative. UA consistent with UTI. BCx NGTD. Renal function remained normal. CXR showing evidence of bronchiolitis. CT abdomen and pelvis showing mild bibasilar scarring or atelectasis and probable minimal bronchiectsis RML. Also noted was right pyelonephritis. Abd US showing a3mm gallbladder wall polyp. General surgery consulted but felt nothing needed to be done. It was felt that the elevated LFTs related to sepsis picture. She was started on IV abx. UCx growing thompson-sensitive EColi. WBC trended down and LFTs improved. Spoke with patient through an science interpreter. She is eating and tolerating it. Up walking to the bathroom. Feels ready for discharge. Discharge instructions provided through the science interpreter. Status at Discharge Cognitive/behavioral status at discharge: stable Time Spent with Patient Time attestation: Total time spent providing and/or coordinating discharge services: 40 minutes Time spent: Greater than 30 minutes Exam Narrative: AF 97.0 115/72 73 16 100% ra Gen - NARD Chest - CTA bilaterally, nml RR CV - RRR S1/S2 Abd - Soft, NT/ND, Positive BS Back - mild Rt CVA tenderness Ext - No pedal edema Psych - Nml mood and affect Skin - Warm and dry DS: Data Data Completed and Pending Labs on day of discharge: Labs from last 24 hours 08/05/22 08/05/22 08/05/22 06:00 06:00 06:00 WBC 10.9 H RBC 3.31 L Hgb 10.2 L Hct 30.7 L MCV 92.7 MCH 30.8 MCHC 33.2 RDW 13.6 Plt Count 420 H MPV 10.4 Immature Gran % (Auto) 1.2 H Neut % (Auto) 68.8 Lymph % (Auto) 17.3 L Wolfe % (Auto) 7.8 Eos % (Auto) 4.4 Baso % (Auto) 0.5 Lymph # (Auto) 1.88 Wolfe # (Auto) 0.9 H Eos # (Auto) 0.5 H Baso # (Auto) 0.1 Abs Immat Gran (auto) 0.13 H Absolute Neuts (auto) 7.5 H Absolute Nucleated RBC 0.0 Nucleated RBC % 0.0 Sodium 134 L Potassium 3.7 Chloride 100 Carbon Dioxide 29 Anion Gap 5 L BUN 6 L Creatinine 0.80 Estim Creat Clear Calc 49 Estimated GFR > 60 Glucose 121 H Calcium 8.1 L Magnesium 2.2 Total Bilirubin 0.8 AST 27 ALT 49 H Alkaline Phosphatase 181 H Total Protein 7.0 Albumin 3.4 L Hepatitis A IgM Ab Negative Hep Bs Antigen Negative Hep B Core IgM Ab Negative Hepatitis C Ab Screen Negative Preliminary micro results at discharge 08/03/22 00:04 Blood Culture - Preliminary Blood 08/03/22 00:04 Blood Culture - Preliminary Blood Discharge Plan Discharge Attending physician on discharge: Stephen Collins Consulting providers: Nino Guzmán Discharging Clinician: Stephen Collins Anticipated Discharge Date/Time: 08/05/22 18:15 Patient Disposition: Home, Self-Care Activity: as tolerated Diet: regular Discharge Instructions: PLEASE PROVIDE COPY OF DISCHARGE INSTRUCTIONS IN HER [place] LANGUAGE Please complete your antibiotic course even if you are starting to feel well. Contact your doctor or call 911 and come to the Emergency Room if you have fever, worsening abdominal or back pain or other worrisome symptoms. Avoid NSAIDs (ibuprofen, naproxen, Antionette
== END 2022-08-05 19:00 | disposition home or self-care (01) | DRG 463 ==
LOC: ANHED 08-03 03:58 → ANH3MEDSUR 08-03 06:28
PROVIDERS: Emergency Medicine; Internal Medicine; Physician Assistant; Admitting Provider Internal Medicine; Emergency Provider Emergency Medicine; Visit Provider Internal Medicine
DX: N10 Acute pyelonephritis (principal); K80.20 Calculus of gallbladder without cholecystitis without obstruction; B96.20 Unspecified Escherichia coli [E. coli] as the cause of diseases classified elsewhere; Z20.822 Contact with and (suspected) exposure to COVID-19
CPT/HCPCS: 36415; 71046; 74177; 76705; 80053; 80074; 81001; 83690; 83735; 84484; 85025; 85610; 85730; 87040; 87077; 87086; 87186; 87637; 93005; 96361; 96374; 99285; A9270; J0131; J2270; J2543; J2765; J7120; Q9967